=== PATIENT | female | born 1980 | race Caucasian/White ===

== ENCOUNTER 2023-11-19 22:18 | Emergency (ER) | payer OTHER, SELFPAY ==
--- NOTE | ~2023-11-19 | CT_ITS ---
EXAMINATION: CT abdomen pelvis wo con DATE: 11/20/2023 00:17 INDICATION: Flank pain. Urinary tract infection. TECHNIQUE: Computed tomography (CT) of the abdomen and pelvis was performed without intravenous contr ast. Automated exposure control and iterative reconstruction technique were employed. The dose-length product was 233.39 mGy-cm. COMPARISON: CT abdomen and pelvis 09/11/2009 FINDINGS: The visualized portions of the lung bases demonstrate mild atelectasis. No pleural effusion . The heart size is normal. No pericardial effusion. There is a 2.9 cm hypodense mass in right hepati c lobe adjacent to the gallbladder, increased from 0.9 cm on 09/11/2009, likely steatosis or a benign mass. There is a 10 mm cyst in the liver. The gallbladder, spleen, pancreas, and adrenal glands are n ormal. There are 3 stones in right kidney measuring up to 3 mm. There are approximately 10 stones in left kidney measuring up to 5 mm. There are no dilated loops of bowel. The appendix is well visualize d. There are no pathologically enlarged lymph nodes. There is physiologic fluid in the pelvis. There is mild lumbar spondylosis. IMPRESSION: 1. Bilateral nonobstructing kidney stones. Reviewed, dictated and finalized at location E.
[2023-11-19 22:24] VITALS: BP 109/66; PULSE 94; RESP 15; TEMP 36.6; O2SAT 99
[2023-11-19 22:42] LABS: Basophils Percent Auto 0.3 % (0.2-1.2); Eosinophils Percent Auto 0.4 % (0-4.4); Hematocrit 32.8 % (37.0-47.0); Hemoglobin 11.2 g/dL (12.0-15.0); Immature Granulocyte Absolute 0.04 K/mm3 (0.00-0.031); Immature Granulocyte Percent A 0.4 % (0-0.5); Lymphocytes Absolute Auto 1.29 K/mm3 (0.9-3.2); Lymphocytes Percent Auto 12.3 % (18.3-44.2); Mean Corpuscular HGB Conc 34.1 g/dl (32-36); Mean Corpuscular Hemoglobin 31.2 pg (26-34); Mean Corpuscular Volume 91.4 fl (80-100); Mean Platelet Volume 9.5 fl (7.4-10.4); Monocytes Absolute Auto 0.7 K/mm3 (0.1-0.6); Monocytes Percent Auto 6.5 % (2.6-8.5); Neutrophils Absolute Auto 8.4 K/mm3 (1.3-6.7); Neutrophils Percent Auto 80.1 % (45.5-73.1); Platelet Count Result 228 k/mm3 (150-375); Red Blood Count 3.59 M/mm3 (4.2-5.4); Red Cell Distribution Width 12.3 % (11.5-14.5); White Blood Count 10.5 K/mm3 (4.5-10.0)
[2023-11-19 22:52] LABS: Alanine Aminotransferase 12 U/L (6-35); Albumin Level 4.2 g/dL (3.5-5.1); Alkaline Phosphatase 62 U/L (38-126); Anion Gap 6 mmol/L (4-12); Aspartate Amino Transferase 19 U/L (14-36); Bilirubin,Total 0.8 mg/dL (0.2-1.3); Blood Urea Nitrogen 19 mg/dL (7-17); Calcium 9.2 mg/dL (8.4-10.2); Carbon Dioxide 23 mmol/L (22-30); Chloride 106 mmol/L (98-107); Estimated CRCL calculation 81 ml/min; Estimated Glomerular Filt Rate > 60; Glucose 98 mg/dL (65-110); Potassium 3.8 mmol/L (3.4-5.0); Sodium 135 mmol/L (137-145)
[2023-11-19 22:57] LABS: Appearance Urine Turbid (Clear); Bacteria Urine 3+ /hpf; Bilirubin Urine Negative (Negative); Blood Urine 3+ (Negative); Color Urine Yellow (Yellow); Glucose Urine UA Negative (Negative); Ketones Urine Trace mg/dL (Negative); Leukocyte Esterase Ur 3+ LEU/UL (Negative); Need Manual Microscopic Reviewed; Nitrate Urine Positive (Negative); Protein Urine 3+ mg/dL (Negative); RBC Urine >100 /hpf (0-2); Specific Grav Ur 1.017 (1.001-1.035); Squamous Epithelial Cell Urine Occasional /hpf (Few); WBC Urine >100 /hpf (0-3); pH Urine 6.5 (5.0-9.0)
[2023-11-19 23:00] LABS: Add Urine Microscopic? YES
[2023-11-19 23:06] LABS: Pregnancy On Board Control Positive; Urine Pregnancy Test Negative
--- NOTE | 2023-11-20 00:11 | ED.ABDPAIN ---
HPI - Abdominal Pain General Chief Complaint: Urogenital-Female Stated Complaint: poss kidney stone Time Seen by Provider: 11/20/23 00:05 Source: patient Mode of arrival: ambulatory Limitations: no limitations History of Present Illness HPI narrative: This is a 43-year-old female that presents to the emergency department for dysuria. Reports associated urinary frequency, nausea hematuria and flank pain. Reports history of kidney stones and that this feels similar. Denies fevers. Related Data Allergies Allergy/AdvReac Type Severity Reaction Status Date / Time oseltamivir Allergy Unknown HIVES Verified 11/19/23 22:18 Review of Systems Review of Systems: CONSTITUTIONAL: Denies fever GASTROINTESTINAL: Reports abdominal pain, nausea, vomiting GENITOURINARY: Reports dysuria and hematuria. All systems reviewed & are unremarkable except as noted in HPI and below PMFSH Past Medical History Medical History (Updated 11/20/23 @ 03:34 by Alana Guillory PA-C) History of prolactinoma Family History Family History (Updated 01/28/18 @ 10:40 by DOCTOR UNKNOWN) Father Diabetes mellitus Patient's father is in good health Grandparent Diabetes mellitus Family history of pancreatic cancer Family history of lung cancer, Onset Age: 70 Mother Patient's mother is in good health Social History Social History Smoking status: Never smoker Exam Narrative: GENERAL: Well-appearing, well-nourished, and in no acute distress. HEAD: Normocephalic, atraumatic. EYES: EOMI. CHEST: Clear to auscultation. No respiratory distress. No wheezes rales or rhonchi HEART: Regular rate and rhythm. No murmur heard. Normal peripheral pulses. ABDOMEN: Soft, nondistended, normal active bowel sounds. Tender in the right lower abdomen, without guarding EXTREMITIES: Normal range of motion. No edema. SKIN: Warm, dry, no rash. NEURO: No focal deficits. Alert and oriented x3. PSYCH: Normal mood and affect Course Course Emergency Course: Patient was updated on her workup and agrees with plan of care. Vital Signs Vital signs: Vital Signs Temperature 97.9 F 11/19/23 22:24 Pulse Rate 94 11/19/23 22:24 Respiratory Rate 15 11/19/23 22:24 Blood Pressure 109/66 11/19/23 22:24 Pulse Oximetry 99 11/19/23 22:24 Oxygen Delivery Room Air 11/19/23 22:24 Temperature 97.9 F 11/19/23 22:24 Pulse Rate 94 11/19/23 22:24 Respiratory Rate 15 11/19/23 22:24 Blood Pressure 109/66 11/19/23 22:24 Pulse Oximetry 99 11/19/23 22:24 Oxygen Delivery Room Air 11/19/23 22:24 MDM - Abdominal Pain MDM Narrative Medical decision making narrative: Patient presents emergency department for irritative voiding symptoms. Reporting history of kidney stones. She is afebrile and nontoxic appearing. CBC with mild leukocytosis. Also shows normocytic anemia with hemoglobin 11.2. Metabolic panel with normal kidney function. Urine with evidence of infection. This will be sent for culture. Patient started on IV antibiotics. CT abdomen and pelvis is without acute findings. Patient was updated on her workup and agrees with plan of care. Will be continued on oral antibiotics for acute UTI. She is to follow up with her primary provider. She was given warnings to return to the ER Differential Diagnosis Differential diagnosis: Likely calculus of kidney and other ( UTI) Lab Data Attestation: I reviewed the patient's lab results. 11/19/23 22:31 11/19/23 22:31 Labs: Lab Results 11/19/23 11/19/23 Range/Units 22:27 22:31 WBC 10.5 H (4.5-10.0) K/mm3 RBC 3.59 L (4.2-5.4) M/mm3 Hgb 11.2 L (12.0-15.0) g/dL Hct 32.8 L (37.0-47.0) % MCV 91.4 (80-100) fl MCH 31.2 (26-34) pg MCHC 34.1 (32-36) g/dl RDW 12.3 (11.5-14.5) % Plt Count 228 (150-375) k/mm3 MPV 9.5 (7.4-10.4) fl Immature Gran % (Auto) 0.4 (0-0.5) % Neut % (Auto) 80.1 H (45.5-73.1) % Ly
--- NOTE | 2023-11-20 00:25 | PC.NURSE ---
Pt requesting to hold off on her Pain medication and zofran at this time. elvia العلي notified.
[2023-11-20 03:39] VITALS: BP 110/71; PULSE 90; RESP 14; O2SAT 98
== END 2023-11-20 03:41 | disposition home or self-care (01) ==
PROVIDERS: Emergency Medicine; Emergency Provider Physician Assistant
DX: N39.0 Urinary tract infection, site not specified (principal)
CPT/HCPCS: 36415; 74176; 80053; 81001; 81025; 85025; 87077; 87086; 87088; 87186; 96365; 99284; J0696

== ENCOUNTER 2023-12-10 14:40 | Outpatient (CLI) | payer OTHER, SELFPAY ==
--- NOTE | ~2023-12-10 | MR_ITS ---
EXAMINATION: MR abdomen wo/w con DATE: 12/10/2023 15:42 INDICATION: Liver mass TECHNIQUE: Magnetic resonance imaging (MRI) of the abdomen was performed without intravenous contrast . Sequences included coronal T2-weighted SS-FSE, coronal and axial FS 2D-FIESTA, axial STIR FSE, axi al T2-weighted SS-FSE, axial T2-weighted FS SS-FSE, axial diffusion-weighted SE, axial dual-echo T1-w eighted FSPGR, and axial and coronal T1-weighted LAVA. Postcontrast axial T1-weighted LAVA images wer e obtained in a time course. Postcontrast coronal T1-weighted LAVA images were obtained. COMPARISON: None. FINDINGS: There are 3 lesions in the right hepatic lobe with similar imaging features, the largest correspond t o the lesion of concern identified on prior CT along the gallbladder fossa measuring 3.3 x 2.2 cm and the 2 smaller lesions each measuring less than 1.3 cm, both in segment 8 of the liver. These are eac h low-attenuation on prior CT with smooth lobular margins, restricted diffusion, high T2 signal of le ss than simple fluid intensity and low T1 signal. Which demonstrate a small amount of very delayed pr ogressively increasing peripheral puddling of contrast most consistent with hemangiomas. Heart size is normal. No pericardial or pleural effusion. Gallbladder, pancreas, spleen, bilateral ad renal glands and kidneys are normal. Visualized portions of bowels are normal. No pathologically enla rged abdominal lymphadenopathy. Visualized portion of the uterus is unremarkable. Few small T2 hyperi ntense bilateral adnexal cysts/follicles the largest on the right measuring 1.5 cm. Small amount of l ikely physiologic free fluid in the pelvis. Mild lumbar levocurvature. Normal bone marrow signal thro ughout. IMPRESSION: 1. 3 lesions in the right hepatic lobe with imaging features most consistent with benign hemangiomas. The largest measuring 2.3 x 2.2 cm corresponds to the lesion of concern on prior CT. Reviewed, dictated and finalized at location A. IMPRESSION: 1. 3 lesions in the right hepatic lobe with imaging features most consistent wi th benign hemangiomas. The largest measuring 2.3 x 2.2 cm corresponds to the le ridge of concern on prior CT.
== END 2023-12-10 14:41 ==
PROVIDERS: PCP Physician Assistant; Visit Provider Physician Assistant
DX: R16.0 Hepatomegaly, not elsewhere classified (principal)
CPT/HCPCS: 74183; A9577